=== PATIENT | male | born 1960 | race African-American/Black ===

== ENCOUNTER 2021-06-16 19:46 | Inpatient (IN) ==
[2021-06-16] MEDS ORDERED: THIAMINE INJ 100 MG, FOLIC ACID INJ 1 MG, MAGNESIUM SULF INJ 2 GM, MULTIVITAMIN INJ 10 ... IV ONE (20:26)
[2021-06-16] MEDS ORDERED: METOPROLOL TARTRATE 5 MG/5 ML VIAL IV STA (20:44)
[2021-06-16 21:33] LABS: Basophils % 0.6 % (0.0-0.8); Eosinophils # 0.1 10*3/uL (0.0-0.87); Eosinophils % 1.9 % (0.00-10.9); Hematocrit 34.6 VOL% (42.0-52.0); Hemoglobin 11.3 GM/DL (14.0-18.0); Immature Granulocytes % 0.3 %; Immature Granulocytes Absolute 0.02 #; Lymphocytes # 3.1 10*3/uL (1.4-4.0); Lymphocytes % 48.6 % (21.2-54.2); Mean Corpuscular HGB Conc 32.7 GM/DL (32-36); Mean Platelet Volume 10.9 FL (9.6-12.0); Monocytes % 8.1 % (1.7-12.7); Neutrophils % 40.5 % (38.7-73.9); Platelet Count 374 T/CUMM (130-400); Red Blood Count 3.53 MC/CUMM (3.8-5.5); Red Cell Distribution Width 14.5 % (9.3-17.3); White Blood Count 6.3 T/CUMM (4-12)
[2021-06-16] MEDS ORDERED: AMIODARONE INJ 150 MG in DEXTROSE 5% 100 ML IV ONE (21:50)
[2021-06-16 21:55] LABS: Alanine Aminotransferase 46 U/L (16-61); Albumin 2.8 G/DL (3.4-5.0); Alkaline Phosphatase 115 U/L (45-117); Aspartate Amino Transferase 55 U/L (0-37); Bilirubin,Total < 0.39 MG/DL (0.20-1.00); Blood Urea Nitrogen 11 MG/DL (7-18); Calcium 9.2 MG/DL (8.5-10.1); Carbon Dioxide 29 MMOL/L (21-32); Estimated Glom Filtration Rate 128 ML/MIN; Glucose 106 MG/DL (74-106); Potassium 3.6 MMOL/L (3.5-5.1); Sodium 143 MMOL/L (136-145); Total Protein 6.9 G/DL (6.4-8.2)
[2021-06-16] MEDS ORDERED: AMIODARONE INJ 450 MG in DEXTROSE 5% 241 ML IV SCH (22:00)
[2021-06-16] MEDS: AMIODARONE INJ 450 MG in DEXTROSE 5% 241 ML IV SCH (23:00)
[2021-06-16] MEDS ORDERED: cefTRIAXone 1,000 MG in SODIUM CHLORIDE 0.9% 100 ML IV STA (23:01)
[2021-06-16] MEDS ORDERED: ONDANSETRON 4 MG/2 ML VIAL IV PRN (23:05)
[2021-06-16] MEDS ORDERED: ZALEPLON 5 MG CAPSULE PO PRN (23:05)
[2021-06-16] MEDS ORDERED: hydrALAZINE 20 MG/1 ML VIAL IV PRN (23:05)
[2021-06-16] MEDS ORDERED: guaiFENesin/DM ER 600-30 MG TABLET PO PRN (23:05)
[2021-06-16] MEDS ORDERED: ACETAMINOPHEN 325 MG TABLET PO PRN (23:05)
[2021-06-16] MEDS ORDERED: GLUCAGON 1 MG VIAL IM PRN (23:05)
[2021-06-16] MEDS ORDERED: DEXTROSE 50% 25 GM/50 ML VIAL IV PRN (23:05)
[2021-06-16] MEDS ORDERED: DOCUSATE SODIUM 100 MG CAPSULE PO PRN (23:05)
[2021-06-16] MEDS ORDERED: MORPHINE 2 MG/1 ML SYRINGE IV PRN (23:05)
[2021-06-16] MEDS ORDERED: NICOTINE 21 MG/24 HR PATCH TRANSDERM PRN (23:05)
[2021-06-16] MEDS ORDERED: diphenhydrAMINE CAP 25 MG CAPSULE PO PRN (23:05)
[2021-06-16] MEDS ORDERED: ENOXAPARIN 120 MG/0.8 ML SYRINGE SUBCUT ONE (23:08)
[2021-06-17] MEDS: ENOXAPARIN 120 MG/0.8 ML SYRINGE SUBCUT SCH ×3 (00:02→22:37)
[2021-06-17] MEDS: AMIODARONE INJ 450 MG in DEXTROSE 5% 241 ML IV SCH (00:06)
[2021-06-17] MEDS ORDERED: DILTIAZEM 50 MG/10 ML VIAL IV ONE (00:25)
[2021-06-17] MEDS: ALBUTEROL 2.5 MG/3 ML NEB RESP TX SCH ×4 (01:54→20:20)
[2021-06-17 06:35] LABS: Basophils % 0.4 % (0.0-0.8); Eosinophils # 0.1 10*3/uL (0.0-0.87); Eosinophils % 1.3 % (0.00-10.9); Hematocrit 34.8 VOL% (42.0-52.0); Hemoglobin 11.6 GM/DL (14.0-18.0); Immature Granulocytes % 0.3 %; Immature Granulocytes Absolute 0.02 #; Lymphocytes # 2.6 10*3/uL (1.4-4.0); Lymphocytes % 37.9 % (21.2-54.2); Mean Corpuscular HGB Conc 33.3 GM/DL (32-36); Mean Corpuscular Volume 95.9 FL (87-102); Monocytes % 9.5 % (1.7-12.7); Neutrophils % 50.6 % (38.7-73.9); Platelet Count 374 T/CUMM (130-400); Red Blood Count 3.63 MC/CUMM (3.8-5.5); Red Cell Distribution Width 14.2 % (9.3-17.3); White Blood Count 6.9 T/CUMM (4-12)
[2021-06-17 07:01] LABS: Osmolality,Calculated 281.3 MOS/KG (273-304); Potassium 3.8 MMOL/L (3.5-5.1)
[2021-06-17 07:24] LABS: Free T4 (Free Thyroxine) 1.08 NG/DL (0.76-1.46); Thyroid Stimulating Hormone 4.3 uIU/ml (0.358-3.74)
[2021-06-17] MEDS ORDERED: METOPROLOL TARTRATE 25 MG TABLET PO SCH (09:00)
[2021-06-17] MEDS: PANTOPRAZOLE 40 MG TABLET PO SCH (09:22)
[2021-06-17] MEDS: AZITHROMYCIN INJ 500 MG in SODIUM CHLORIDE 0.9% 250 ML IV SCH (09:23)
[2021-06-17] MEDS ORDERED: AMIODARONE INJ 150 MG in DEXTROSE 5% 100 ML IV ONE (13:22)
[2021-06-17] MEDS ORDERED: AMIODARONE INJ 450 MG in DEXTROSE 5% 241 ML IV SCH ×2 (13:30→20:00)
[2021-06-17] MEDS ORDERED: amLODIPine 2.5 MG TABLET PO ONE (14:07)
[2021-06-17] MEDS ORDERED: carvediloL 3.125 MG TABLET PO ONE (14:07)
[2021-06-17] MEDS ORDERED: FUROSEMIDE 40 MG/4 ML VIAL IV ONE (14:19)
[2021-06-17] MEDS: carvediloL 3.125 MG TABLET PO SCH ×2 (15:45→21:01)
[2021-06-17] MEDS: QUEtiapine 100 MG TABLET PO SCH (21:00)
[2021-06-17] MEDS: OLANZapine 5 MG TABLET PO SCH (21:00)
[2021-06-17] MEDS: cefTRIAXone 1,000 MG in SODIUM CHLORIDE 0.9% 100 ML IV SCH (21:01)
[2021-06-18] MEDS: ALBUTEROL 2.5 MG/3 ML NEB RESP TX SCH ×3 (01:45→12:15)
[2021-06-18] MEDS: MULTIVITAMIN (CENTRUM) TABLET PO SCH (08:34)
[2021-06-18] MEDS: carvediloL 3.125 MG TABLET PO SCH (08:34)
[2021-06-18] MEDS: THIAMINE 100 MG TABLET PO SCH (08:34)
[2021-06-18] MEDS: lisinopriL 10 MG TABLET PO SCH (08:35)
[2021-06-18] MEDS: amLODIPine 5 MG TABLET PO SCH (08:35)
[2021-06-18] MEDS: PANTOPRAZOLE 40 MG TABLET PO SCH (08:35)
[2021-06-18] MEDS: AMIODARONE 200 MG TABLET PO SCH ×2 (10:03→20:34)
[2021-06-18] MEDS ORDERED: carvediloL 3.125 MG TABLET PO ONE (10:57)
[2021-06-18] MEDS: ENOXAPARIN 120 MG/0.8 ML SYRINGE SUBCUT SCH ×2 (13:32→22:45)
[2021-06-18] MEDS: AZITHROMYCIN INJ 500 MG in SODIUM CHLORIDE 0.9% 250 ML IV SCH (13:33)
[2021-06-18] MEDS: FUROSEMIDE 40 MG/4 ML VIAL IV SCH (18:20)
[2021-06-18] MEDS: cefTRIAXone 1,000 MG in SODIUM CHLORIDE 0.9% 100 ML IV SCH (20:33)
[2021-06-18] MEDS: OLANZapine 5 MG TABLET PO SCH (20:34)
[2021-06-18] MEDS: QUEtiapine 100 MG TABLET PO SCH (20:34)
[2021-06-18] MEDS: carvediloL 6.25 MG TABLET PO SCH (20:34)
[2021-06-19] MEDS: ALBUTEROL 2.5 MG/3 ML NEB RESP TX SCH ×3 (02:42→14:10)
[2021-06-19 05:54] LABS: Basophils % 0.5 % (0.0-0.8); Eosinophils # 0.2 10*3/uL (0.0-0.87); Eosinophils % 2.4 % (0.00-10.9); Hematocrit 32.1 VOL% (42.0-52.0); Hemoglobin 10.4 GM/DL (14.0-18.0); Immature Granulocytes % 0.3 %; Immature Granulocytes Absolute 0.02 #; Lymphocytes # 3.1 10*3/uL (1.4-4.0); Mean Corpuscular HGB Conc 32.4 GM/DL (32-36); Mean Corpuscular Volume 97.3 FL (87-102); Mean Platelet Volume 11.2 FL (9.6-12.0); Monocytes % 11.5 % (1.7-12.7); Neutrophils % 36.3 % (38.7-73.9); Platelet Count 372 T/CUMM (130-400); Red Cell Distribution Width 14.3 % (9.3-17.3); White Blood Count 6.4 T/CUMM (4-12)
[2021-06-19 06:25] LABS: Atypical Lymphocytes Few; Eosinophils 1 % (0-10); Lymphocytes 43 % (20-55); Platelet Estimate Normal; Segmented Neutrophils 38 % (50-85); Total Cells Counted 100
[2021-06-19 06:29] LABS: Calcium 8.8 MG/DL (8.5-10.1); Osmolality,Calculated 278.3 MOS/KG (273-304); Potassium 3.3 MMOL/L (3.5-5.1)
[2021-06-19] MEDS: FUROSEMIDE 40 MG/4 ML VIAL IV SCH ×2 (08:56→16:06)
[2021-06-19] MEDS: carvediloL 6.25 MG TABLET PO SCH (08:57)
[2021-06-19] MEDS: lisinopriL 10 MG TABLET PO SCH (08:57)
[2021-06-19] MEDS: AMIODARONE 200 MG TABLET PO SCH (08:57)
[2021-06-19] MEDS: THIAMINE 100 MG TABLET PO SCH (08:57)
[2021-06-19] MEDS: MULTIVITAMIN (CENTRUM) TABLET PO SCH (08:57)
[2021-06-19] MEDS: amLODIPine 5 MG TABLET PO SCH (08:58)
[2021-06-19] MEDS: PANTOPRAZOLE 40 MG TABLET PO SCH (08:58)
[2021-06-19] MEDS: AZITHROMYCIN INJ 500 MG in SODIUM CHLORIDE 0.9% 250 ML IV SCH (09:53)
[2021-06-19] MEDS: ENOXAPARIN 120 MG/0.8 ML SYRINGE SUBCUT SCH (11:34)
[2021-06-19] MEDS ORDERED: POTASSIUM CHLORIDE 20 MEQ TABLET PO ONE (11:46)
[2021-06-19 12:36] VITALS: BP 110/74
[2021-06-19] MEDS ORDERED: ASPIRIN EC 81 MG TABLET PO SCH (13:00)
[2021-06-19] MEDS ORDERED: APIXABAN 5 MG TABLET PO SCH (21:00)
== END 2021-06-19 16:53 | disposition home or self-care (01) | DRG 201 ==
LOC: N.ED 19:46 → N.EDINP 23:05 → SUATTDRO 23:05 → N.TELEN 23:49
PROVIDERS: ADMIT Internal Medicine Geriatric Medicine; ATTEND Internal Medicine